=== PATIENT | male | born 1990 | race Two or more races ===

== ENCOUNTER 2018-05-25 08:30 | Outpatient (CLI) | payer OTHER ==
--- NOTE | 2018-05-25 12:57 | MRI Report ---
Reason: LOW BACK PAIN Procedure Date: 05/25/2018 Accession Number: [id number] / [id number] Procedure: MRI - Lumbar Spine W/O CPT Code: FULL RESULT: EXAM: MRI LUMBAR SPINE WITHOUT CONTRAST EXAM DATE: 05/25/2018 09:51 AM. CLINICAL HISTORY: Low back pain. COMPARISON: None. TECHNIQUE: Multiplanar, multisequence T1-weighted and fluid-sensitive sequences of the lumbar spine from T12 to S1 without contrast. Other: None. 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 For numbering purposes, the transitional lumbosacral type vertebral body will be labeled as as S1. This makes the S1-S2 disk space rudimentary. 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 The distal tip of the conus medullaris is present at the L1 inferior endplate level. No suspicious marrow replacement is identified in the lumbar vertebral bodies. No malalignment is present. L1-L5: Unremarkable disk spaces. L5-S1: A posterior bulge of the annulus is present without a focal posterior disk protrusion. S1-S2: Disk space is rudimentary. Facet/ligamentum flavum hypertrophy which is mild in severity is seen in the lower lumbar spine. IMPRESSION: 1. A posterior bulge of the annulus without a discrete focal posterior disk protrusion is present at L5-S1. 2. No central canal or foraminal stenosis. 3. Ambiguous segmentation of the lumbar spine with the numbering scheme discussed above. Comment: The following findings are so common in adults without low back pain that while we report their presence, they must be interpreted with caution and in the context of the clinical situation. (Reference Liatvik et al, Spine 2001) Prevalence of findings in patients without low back pain: Disk degeneration (any evidence): 92% Disk desiccation/T2 signal loss: 83% Disk height loss: 56% Disk bulge: 64% Disk protrusion: 32% Annular tear/high intensity zone: 38% RADIA
== END 2018-05-25 08:31 | disposition home or self-care (01) ==
LOC: DI 08:30
DX: M51.87 Other intervertebral disc disorders, lumbosacral region (principal); M96.0 Pseudarthrosis after fusion or arthrodesis
CPT/HCPCS: 72148